=== PATIENT | male | born 1965 | race Caucasian/White ===

== ENCOUNTER 2017-08-12 11:56 | Observation (INO) ==
[2017-08-12 13:32] VITALS: BMI 29.0
[2017-08-12] MEDS ORDERED: PROPRANOLOL 20 MG TABLET PO PRN (13:56)
[2017-08-12] MEDS: 1/2 NS with KCL 20mEq 1,000 ML IV SCH (14:19)
[2017-08-12] MEDS: CYANOCOBALAMIN (B-12) 1,000mcg/ml INJECTION IM SCH (15:05)
[2017-08-12] MEDS: AMLODIPINE 5 MG TAB - PT OWN PO SCH (16:41)
[2017-08-12] MEDS: LISINOPRIL PO SCH (16:42)
[2017-08-12] MEDS: HCTZ PO SCH (16:42)
[2017-08-12] MEDS: THIAMINE 200mg/2ml INJECTION IVP SCH (16:44)
[2017-08-12] MEDS: LEVOFLOXACIN 500 MG TABLET PO SCH (20:23)
[2017-08-12] MEDS ORDERED: QUETIAPINE 25 MG PO SCH (21:00)
[2017-08-13] MEDS: 1/2 NS with KCL 20mEq 1,000 ML IV SCH (00:24)
[2017-08-13] MEDS: THIAMINE 200mg/2ml INJECTION IVP SCH ×2 (00:25→09:23)
[2017-08-13] MEDS: LEVOFLOXACIN 500 MG TABLET PO SCH (06:40)
[2017-08-13 07:35] VITALS: BP 120/72; RESP 24; TEMP 95.6; O2SAT 98
[2017-08-13] MEDS ORDERED: CITALOPRAM 20 MG TABLET PO SCH (09:00)
[2017-08-13] MEDS: AMLODIPINE 5 MG TAB - PT OWN PO SCH (09:24)
[2017-08-13] MEDS: CYANOCOBALAMIN (B-12) 1,000mcg/ml INJECTION IM SCH (09:24)
[2017-08-13] MEDS: HCTZ PO SCH (09:25)
[2017-08-13] MEDS: LISINOPRIL PO SCH (09:25)
--- NOTE | 2017-08-13 10:15 | Internal Med History&Physical ---
Internal Medicine HPI Chief complaint: Palpitations, Drug/Alcohol abuse History of present illness: Patient seen and examined. His contacted me and indicated that Colton had been drinking heavily again and taking nonprescribed medications. He has a bed secured at a rehab facility on Wednesday, however she was fearful that he might not make it until then. He has been complaining of panic attacks and palpitations. I directed them to be a direct admit to guard against withdrawl effects and possible seizures. Review of Systems ROS unobtainable: due to mental status [facility] Patient Stated Medical History Peripheral Neuropathy Yes: bottom of feet Hypertension Yes: takes medication Depression Yes Substance Use Disorder Yes Hypertension Insomnia Surgical History: Colonoscopy 2013. 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 Housing: house Household members: spouse service: No Current occupational status: unemployed Current residence: Apartment/Private Home Medications Home Medications Medication Instructions Recorded Confirmed Type Amlodipine Besylate [Norvasc] 5 mg PO HS 08/12/17 08/12/17 History Escitalopram [Lexapro] 1 tab PO DAILY 08/12/17 08/12/17 History Levofloxacin [Levaquin] 500 mg PO DAILY 08/12/17 08/12/17 History Lisinopril/Hctz 20/12.5 [Prinzide 1 tab PO DAILY 08/12/17 08/12/17 History 20/12.5] Quetiapine [Seroquel] 25 mg PO HS 08/12/17 08/12/17 History Allergies Allergy/AdvReac Type Severity Reaction Status Date / Time No Known Allergies Allergy Verified 08/12/17 13:38 Exam Vital signs: Temperature 95.6 F L 08/13/17 07:33 Pulse Rate 75 08/13/17 07:33 Respiratory Rate 24 08/13/17 07:33 Blood Pressure 120/72 08/13/17 07:33 Pulse Oximetry 98 08/13/17 07:33 - Constitutional moderate distress - Routine HEENT Exam Head: Present: normocephalic, atraumatic Eye: Present: EOMI, PERRL, conjunctivae pink. Absent: conjunctival icterus, scleral injection ENT: Present: mucous membranes moist Throat: normal inspection - Routine Neck Exam Present: supple. Absent: carotid bruit, lymphadenopathy, thyromegaly - Routine Chest/Breast/Axilla Exam Chest wall: Absent: tenderness Axillae: Absent: lymphadenopathy - Routine Respiratory Exam Absent: rales, respiratory distress, rhonchi, stridor, wheezes - Routine Cardiovascular Exam Present: tachycardia, irregular rhythm (occasional ectopy) - Routine Abdominal Exam Present: soft, normoactive bowel sounds, non distended, non tender. Absent: rebound, guarding, rigid - Routine Rectal Exam Patient deferred: visual exam, digital exam, prostate exam - Routine Skin Exam Present: intact. Absent: cyanosis, erythema, petechiae, urticaria, lesions, jaundice - Routine Neurological Exam Present: altered mental status, moving all extremities - Routine Psychiatric Exam Present: cooperative, depressed, anxious, manic. Absent: auditory hallucinations, visual hallucinations, good insight, good judgment Internal Medicine Results - Labs CBC & Chem 7: 08/12/17 14:18 08/13/17 05:33 Labs: Short CBC 08/12/17 Range/Units 14:18 WBC 12.1 H (4.5-11.0) T/MM3 Hgb 14.6 (13.5-17.5) GM/DL Hct 44.0 (41-53) % Plt Count 263 (130-400) T/MM3 BMP 08/12/17 08/13/17 14:18 05:33 Sodium 144 143 Potassium 3.4 L 3.7 Chloride 102 102 Carbon Dioxide 33 H 33 H BUN 21.0 H 14.0 Creatinine 1.3 1.0 D Glucose 109 102 Calcium 9.2 9.1 Liver Function 08/12/17 08/13/17 Range/Units 14:18 05:33 Total Bilirubin 0.30 (0.20-1.30) MG/DL AST 46 (17-59) U/L ALT 45 (21-72) U/L Alkaline Phosphatase 81 (38-126) U/L Albumin 3.8 3.4 L (3.5-5.0) G/DL Assessment and Plan - Assessment and Plan (1) Palpitation Current visit: Yes Status: Acute (2) Panic attack Current visit: Yes Status: Acute (3) Drug abuse Current visit: Yes Status: Acute My plan is to check his labs, start IVF hydreation, stabilize him against withdrawl seizures. When stable, discharge to rehab facility. (4) Alcohol abuse Current visit: Yes Status: Acute
[2017-08-13] MEDS ORDERED: 1/2 NS 1,000 ML IV SCH (10:17)
[2017-08-13] MEDS ORDERED: POTASSIUM PHOSPHATE IV SCH (10:20)
[2017-08-13] MEDS ORDERED: 1/2 NS IV SCH (10:20)
[2017-08-13 11:36] VITALS: PULSE 73
--- NOTE | 2017-08-13 13:32 | Discharge Instructions ---
Discharge Plan - Med Rec/Dispo Prescriptions: Continue Quetiapine [Seroquel] 25 mg PO HS Lisinopril/Hctz 20/12.5 [Prinzide 20/12.5] 1 tab PO DAILY Levofloxacin [Levaquin] 500 mg PO DAILY Escitalopram [Lexapro] 1 tab PO DAILY Amlodipine Besylate [Norvasc] 5 mg PO HS Discharge Instructions/Outpatient Orders: Provider Discharge Instructions Location: Determined By Patient - Disposition 01 Discharged Home, Self-Care
--- NOTE | 2017-08-13 13:37 | Discharge Summary ---
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 tach - Laboratory Labs: 08/12/17 14:18 08/13/17 05:33 History of Present Illness HPI: Patient seen and examined. His contacted me and indicated that Colton had been drinking heavily again and taking nonprescribed medications. He has a bed secured at a rehab facility on Wednesday, however she was fearful that he might not make it until then. He has been complaining of panic attacks and palpitations. I directed them to be a direct admit to guard against withdrawl effects and possible seizures. Hospital Course This is a general summary of the patient's hospital course. For more details refer to the complete medical record. Patient was admitted and started on IV fluid hydration. He was also given Librium and I restarted his home medications. Last night he did have an 8 beat run of V. tach. This morning's labs demonstrated a normal potassium and magnesium levels. His phosphorus was low and so he needed supplement to his IV fluid was changed from potassium chloride to potassium phosphate. I had a long discussion with Colton today about his discharge plans and plan for his life going forward. He is committed to rejoining his AA meeting starting [facility] at 5 :30. I asked if he is discussed this with his and he says yes. We talked extensively about the need to be intentional. He will follow-up with me in the office as an outpatient. Time spent with patient: greater than 35 minutes Discharge Plan - Med Rec/Dispo Prescriptions: Continue Quetiapine [Seroquel] 25 mg PO HS Lisinopril/Hctz 20/12.5 [Prinzide 20/12.5] 1 tab PO DAILY Levofloxacin [Levaquin] 500 mg PO DAILY Escitalopram [Lexapro] 1 tab PO DAILY Amlodipine Besylate [Norvasc] 5 mg PO HS Discharge Instructions/Outpatient Orders: Provider Discharge Instructions Location: Determined By Patient
[2017-08-13] MEDS ORDERED: LEVOFLOXACIN 500 MG TABLET PO SCH (15:00)
== END 2017-08-13 14:30 | disposition home or self-care (01) ==
LOC: MED
PROVIDERS: ADMIT Internal Medicine; ATTEND Internal Medicine